=== PATIENT | female | born 1995 | race Caucasian/White ===

== ENCOUNTER 2017-05-16 13:01 | Emergency (ER) | payer OTHER ==
[~2017-05-16] VITALS: Ht 154.9 cm; Wt 65.8 kg
[2017-05-16 13:18] VITALS: Ht 154.9 cm; Wt 65.8 kg
[2017-05-16 17:47] VITALS: BP 124/74
== END 2017-05-16 17:47 | disposition home or self-care (01) ==
LOC: ED 13:01
DX: O23.41 Unspecified infection of urinary tract in pregnancy, first trimester (principal)